=== PATIENT | male | born 1995 | race Caucasian/White ===

== ENCOUNTER 2024-10-02 18:47 | Emergency (ER) | payer SELFPAY ==
[~2024-10-02] VITALS: Ht 172.7 cm; Wt 68.0 kg
[2024-10-02 18:59] VITALS: BP 133/77; PULSE 91; RESP 18; O2SAT 97
== END 2024-10-02 20:20 | disposition left against medical advice (07) ==
LOC: ER 18:47 → EDBD 18:47 → ER 20:15
DX: F41.9 Anxiety disorder, unspecified (principal); R11.2 Nausea with vomiting, unspecified; F12.90 Cannabis use, unspecified, uncomplicated; Z53.21 Procedure and treatment not carried out due to patient leaving prior to being seen by health care provider